=== PATIENT | female | born 1985 | race Caucasian/White ===

== ENCOUNTER 2019-07-14 05:58 | Emergency (ER) | payer OTHER ==
[~2019-07-14] VITALS: Ht 154.9 cm; Wt 61.2 kg
[2019-07-14 06:00] VITALS: BP 131/91
--- NOTE | 2019-07-14 06:00 | NUR ---
TO BED # 09 AMBULATORY
--- NOTE | 2019-07-14 06:17 | NUR ---
34 Y/O FEMALE PRESENTS TO ED, C/O ABDOMINAL PAIN 02/23. PT STATES PAIN STARTED LAST NIGHT AND WORSENING THIS MORNING. PAIN RADIATES TO LOWER BACK AND RIGHT LEG; ACHING PAIN. BS ACTIVE X4 QUADRANTS. ABDOMEN SOFT AND ROUND. PT DENIES N/V/D. NO MEDICATIONS TAKEN PRIOR COMING TO ED. PT ABLE TO AMBULATE WITH STEADY GAIT. VSS. ERMD AWARE. WILL CONTINUE TO MONITOR.
--- NOTE | 2019-07-14 06:31 | NUR ---
LAB AT BEDSIDE AT THIS TIME
--- NOTE | 2019-07-14 06:39 | NUR ---
ULTRASOUND AT BEDSIDE
[2019-07-14 06:41] LABS: BASOPHILS # (AUTO) 0.1 K/uL (0.00-0.22); BASOPHILS % (AUTO) 0.6 % (0.0-2.0); EOSINOPHILS # (AUTO) 0.2 K/uL (0-0.4); EOSINOPHILS % (AUTO) 1.6 % (0.0-4.0); HEMATOCRIT 42.3 % (36-48); HEMOGLOBIN 14.1 g/dL (12.0-16.0); LYMPHOCYTES # (AUTO) 3.1 K/uL (2.5-16.5); LYMPHOCYTES % (AUTO) 26.2 % (20.5-51.1); MEAN CORPUSCULAR HEMOGLOBIN 29 pg (27-31); MEAN CORPUSCULAR HGB CONC 33 g/dL (33-37); MEAN CORPUSCULAR VOLUME 86.6 fL (80-94); MONOCYTES # (AUTO) 0.5 K/uL (0.8-1.0); MONOCYTES % (AUTO) 4.4 % (1.7-9.3); NEUTROPHILS % (AUTO) 67.2 % (42.2-75.2); PLATELET COUNT (AUTO) 340 K/uL (140-450); RED BLOOD CELL COUNT(AUTO) 4.88 MIL/uL (4.20-5.40); RED CELL DISTRIBUTION WIDTH 13.8 % (11.6-13.7); WHITE BLOOD COUNT (AUTO) 11.8 K/uL (4.8-10.8)
--- NOTE | 2019-07-14 06:44 | NUR ---
PT UNABLE TO GIVE URINE AT THIS TIME.
[2019-07-14 06:49] LABS: ANION GAP 12.2 (8-16); CARBON DIOXIDE 23.2 mmol/L (21-32); CREATININE 0.5 mg/dL (0.6-1.3); POTASSIUM 3.4 mmol/L (3.5-5.1)
--- NOTE | 2019-07-14 07:01 | NUR ---
URINE COLLECTED AND SENT TO LAB
--- NOTE | 2019-07-14 07:18 | NUR ---
RCEIVED BEDSIDE REPORT FROM SHELL HERNANDEZ FOR CONTINUATION OF CARE
[2019-07-14 07:22] LABS: APPEARANCE,URINE CLEAR (CLEAR); BILIRUBIN,URINE NEGATIVE (NEGATIVE); BLOOD, URINE TRACE-I (NEGATIVE); COLOR,URINE YELLOW (YELLOW); LEUKOCYTE ESTERASE ,URINE NEGATIVE (NEGATIVE); NITRITE, URINE NEGATIVE (NEGATIVE); UGLUCOSE NEGATIVE (NEGATIVE)
[2019-07-14 07:36] LABS: RBC,URINE 0-5 /HPF (0-5); WBC,URINE 0-5 /HPF (0-5)
[2019-07-14] MEDS ORDERED: DEXT 5% / LACT RING 1,000 ML IV ONE (07:45)
--- NOTE | 2019-07-14 08:17 | NUR ---
STARTED 20G IV TO L FA, PT TOLERATED WELL
--- NOTE | 2019-07-14 09:30 | NUR ---
IV removed, catheter intact and site benign. Applied folded 4x4 gauze and tape to stop bleeding.
[2019-07-14 09:35] VITALS: BP 131/84
== END 2019-07-14 09:35 | disposition home or self-care (01) ==
LOC: MED 05:58
DX: O26.91 Pregnancy related conditions, unspecified, first trimester (principal); M54.9 Dorsalgia, unspecified; Z3A.09 9 weeks gestation of pregnancy
CPT/HCPCS: 36415; 76801; 80048; 81001; 84702; 85025; 99284; Q0092